=== PATIENT | male | born 1950 | race Caucasian/White ===

== ENCOUNTER → 2017-05-21 | Outpatient (CLI) | payer OTHER | LOC: PET 08:43 | DX: R91.8 Other nonspecific abnormal finding of lung field (principal); J98.11 Atelectasis; K80.80 Other cholelithiasis without obstruction ==

== ENCOUNTER 2019-01-20 05:44 | Inpatient (IN) | payer OTHER ==
[2019-01-12 10:45] LABS: ABSOLUTE NEUTROPHILS 5.9 thou/uL (1.4-8.2); BASOPHILS 1.4 % (0.0-2.0); EOSINOPHILS 0.9 % (0.0-3.0); HEMATOCRIT 41.9 % (42.0-52.0); HEMOGLOBIN 13.9 gm/dL (14.0-18.0); LYMPHOCYTES 20.3 % (24.0-44.0); MCH 32.4 pg (26.0-34.0); MCHC 33.1 g/dL (28.0-37.0); PLATELET COUNT 238 thou/uL (150-400); POLYS 71.4 % (36.0-66.0); RBC 4.28 mil/uL (4.50-6.00); RDW 14.8 % (10.5-14.5); URINE BILIRUBIN NEGATIVE (Negative); URINE BLOOD NEGATIVE (Negative); URINE CLARITY CLEAR; URINE COLOR YELLOW; URINE GLUCOSE-RANDOM* NEGATIVE (Negative); URINE KETONES NEGATIVE (Negative); URINE LEUKOCYTES-REFLEX NEGATIVE (Negative); URINE NITRITE-REFLEX NEGATIVE (Negative); URINE PROTEIN (DIPSTICK) TRACE (Negative); URINE UROBILINOGEN 0.2 E.U./dl (0.2-1.0); WBC 8.3 thou/uL (4.0-11.0)
[2019-01-12 10:59] LABS: APTT 26.8 Seconds (24.5-32.8); CALCIUM 9.6 mg/dL (8.5-10.1); POTASSIUM 4.1 mmol/L (3.5-5.1); PROTIME 10.4 Seconds (9.3-11.4); TOTAL BILIRUBIN 0.7 mg/dL (<0.1-1.0); TOTAL PROTEIN 7.1 g/dL (6.4-8.2)
--- NOTE | 2019-01-12 17:45 | EKG ---
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: Carlo RENDON : 1950 Requested By: Artem Bettencourt Order Number: [id number] MD: Juventino Miller Measurements Intervals [place] Rate: 65 P: 7 MI: 197 QRS: -10 QRSD: 147 T: -17 QT: 439 QTc: 457 Interpretive Statements Sinus rhythm Right bundle branch block Cannot rule out inferior infarct, age indeterminate Compared to ECG 08/02/1992 15:22:00 Right bundle-branch block now present Electronically Signed On 01-12-2019 17:44:43 CDT by Juventino Miller [email or web address] <ELECTRONICALLY SIGNED> By: Juventino Miller MD, [facility] 01/12/19 1744 56 Juventino Miller MD, FAC /EPI
[~2019-01-20] VITALS: Ht 182.9 cm; Wt 131.9 kg
[2019-01-20] VITALS (11 sets, daily range): BP systolic 108–138; BP diastolic 53–78
[~2019-01-20 05:44] MED LIST: AMLODIPINE-BEN1 EAC3 PO; CASODEX 50 MG T50 M1 PO; LUPRON DEPOT22.5 MG IM; NEURONTIN100 MG PO; OMEPRAZOLE 20 M20 M1 PO; PERFOROMIS20 MCG/2 M INH; PULMICORT0.25 MG/1 INH; ZYLOPRIM300 MG PO
[2019-01-20 15:28] LABS: ABSOLUTE NEUTROPHILS 12.1 thou/uL (1.4-8.2); BASOPHILS 0.1 % (0.0-2.0); EOSINOPHILS 0.1 % (0.0-3.0); HEMATOCRIT 40.5 % (42.0-52.0); HEMOGLOBIN 13.2 gm/dL (14.0-18.0); LYMPHOCYTES 2.4 % (24.0-44.0); MCH 32.1 pg (26.0-34.0); MCHC 32.7 g/dL (28.0-37.0); MCV 98.4 fL (80.0-100.0); PLATELET COUNT 220 thou/uL (150-400); POLYS 95.4 % (36.0-66.0); RBC 4.11 mil/uL (4.50-6.00); RDW 14.5 % (10.5-14.5); WBC 12.6 thou/uL (4.0-11.0)
[2019-01-20 15:34] LABS: CALCIUM 9.6 mg/dL (8.5-10.1); POTASSIUM 4.5 mmol/L (3.5-5.1)
--- NOTE | 2019-01-20 16:08 | NUR ---
01/20: 1500 PT ARRIVED FROM PACU WITH NURSE. EPIDURAL RUNNING, CHECKED SETTINGS WITH RN. PT C/O PAIN IN LEFT EYE, FEELS LIKE FOREIGN OBJECT. CONSULTS CALLED. DR HUFFMAN FLUSHED PT'S LEFT EYE WITH SALINE USING STERILE TECHNIQUE. BROTHER AND FRIEND AT BEDSIDE.
[2019-01-21] VITALS (11 sets, daily range): BP systolic 100–127; BP diastolic 54–70
[2019-01-21 05:40] LABS: HEMATOCRIT 36.9 % (42.0-52.0); MCH 32.3 pg (26.0-34.0); MCHC 32.6 g/dL (28.0-37.0); MCV 99.1 fL (80.0-100.0); RBC 3.72 mil/uL (4.50-6.00); RDW 14.8 % (10.5-14.5); WBC 10.6 thou/uL (4.0-11.0)
[2019-01-21 05:55] LABS: CALCIUM 8.6 mg/dL (8.5-10.1); CREATININE 0.8 mg/dL (0.7-1.3); POTASSIUM 4.6 mmol/L (3.5-5.1)
--- NOTE | 2019-01-21 07:00 | NUR ---
No event in this shift. Pt remains stable t/o the shift. Pain control had been adequated with epidural analgesic. He rated his pain 1-2 this am. No complication from epidural indicates. CTx2 remains inplace, function properly w/o any complication. VSS. Continue working toward goals.
[2019-01-22] VITALS (20 sets, daily range): BP systolic 111–133; BP diastolic 47–72
--- NOTE | 2019-01-22 17:39 | NUR ---
pt is A&OX3, pt is continuing pain management and o2 5L/MIN/NC , pt's pain can control by Fentanyl epidural infusion, pt has pain when pt change position and get up to chair, pt gets up to chair with assist, pt stays chair about 2hr, pt's L side chest tube is working well to water seal per Atrium drain device, 210ml light blood drainage now, pt denies SOB and pain now.
[2019-01-23] VITALS (17 sets, daily range): BP systolic 102–138; BP diastolic 53–79
--- NOTE | 2019-01-23 15:09 | NUR ---
INITIAL ASSESSMENT: Received consult for discharge planning. SW reviewed chart and spoke with attending physician. Pt was admitted from home due to lung mass. Pt is s/p left thoracotomy. Pt currently in ICU. SW met with pt at bedside. Introduced role of SW. Pt is alert/orientated x 4. Pt reports he lives alone in a mobile home in [place]. Pt reports that prior to admission, pt was independent with ADL. Pt does have a ramp into his mobile home. Pt's PCP is Dr. Ludwin Granados in [place]. No hx of services. SW discussed discharge plans. Pt requests referral to post-acute facility, as he lives at home. SW discussed options. Pt requests a referral to a SNF close to [place]. SW reviewed options. Pt requests referrals to be sent to [facility] and [facility]. life care planner to fax referral. Pt may transfer out of ICU. SW is following to assist as needed with discharge planning.
--- NOTE | 2019-01-23 15:34 | NUR ---
DISCHARGE PLANNING. ANTICIPATED DISCHARGE LATER THIS WEEK. POST ACUTE RECOMMENDED AT DISCHARGE. PATIENT REFERRAL FAXED TO [facility]. CALL PLACED TO AGBE, ADMISSIONS FOR [facility]. PER GABE SHE WILL HAVE 2 MALE BEDS AVAILABLE THIS WEEK. GABE TO REVIEW PATIENT REFERRAL AND NOTIFY CM ONCE REVIEW IS COMPLETE. [facility] [phone] FAX [phone]. [facility] CALL PLACED TO [facility] AND [facility], SPOKE WITH VALORIE IN ADMISSIONS. VALORIE NOTIFIED OF PATIENT REFERRAL AND ANTICIPATED DISCHARGE. VALORIE TO REIEW PATIENT REFERRAL AND NOTIFY CM ONCE REVIEW COMPLETE. FOLLOWING TO ASSIST WITH DISCHARGE NEEDS. [facility] [phone] FAX [phone].
[2019-01-24] VITALS (9 sets, daily range): BP systolic 93–144; BP diastolic 54–78
--- NOTE | 2019-01-24 06:31 | NUR ---
Pt is progressing to his care plan goals, he continues to have discomfort, some of which is chronic, but the current regimen is keeping him comfortable. He still has a poor appetite, no BM since 01/20/19, he is voiding after his zuñiga was dc'd 01/23/19. He has been out of bed with PT/OT, and up to the chair.
[2019-01-24 10:28] LABS: ABSOLUTE NEUTROPHILS 5.3 thou/uL (1.4-8.2); EOSINOPHILS 3.6 % (0.0-3.0); HEMATOCRIT 37.9 % (42.0-52.0); HEMOGLOBIN 12.4 gm/dL (14.0-18.0); LYMPHOCYTES 18.2 % (24.0-44.0); MCH 32.3 pg (26.0-34.0); MCHC 32.7 g/dL (28.0-37.0); MCV 98.9 fL (80.0-100.0); MONOCYTES 7.6 % (1.0-8.0); PLATELET COUNT 189 thou/uL (150-400); POLYS 69.6 % (36.0-66.0); RBC 3.83 mil/uL (4.50-6.00); RDW 14.9 % (10.5-14.5); WBC 7.6 thou/uL (4.0-11.0)
[2019-01-24 10:37] LABS: CALCIUM 9.6 mg/dL (8.5-10.1); CREATININE 0.9 mg/dL (0.7-1.3); MAGNESIUM 1.8 mg/dL (1.8-2.4); POTASSIUM 3.8 mmol/L (3.5-5.1)
--- NOTE | 2019-01-24 13:37 | 2DMMODE ---
[facility] [place] [address] 2 D/M-MODE ECHOCARDIOGRAM Name: ALISA DOUGLAS Room #: 238-P ADM IN M.R.#: [id number] Admission: 01/20/19 Attend Phys: Artem Bettencourt MD Discharge: Date of : 48 Report #: [id number] THIS REPORT FOR: //name// APPROVED REPORT Study performed: 01/24/2019 12:06:11 EXAM: Comprehensive 2D, Doppler, and color-flow Echocardiogram Patient Location: ICU Room #: 238 Status: routine BSA: 2.50 HR: 113 bpm BP: 123/67 mmHg Rhythm: Atrial Fibrillation Other Information Study Quality: Technically Difficult Indications COPD Atrial Fibrillation Hypertension/HDD Aortic Valve AoV Peak John.: 1.17 m/s AO Peak Gr.: 5.44 mmHg LVOT Max P.24 mmHg LVOT Max V: 1.14 m/s Pulmonary Valve PV Peak John.: 0.86 m/s PV Peak Gr.: 2.94 mmHg Left Ventricle The left ventricle is normal size. There is normal left ventricular wall thickness. The left ventricular systolic function is normal. The left ventricular ejection fraction is within the normal range. LVEF is 55-60%. This study is not technically sufficient to allow evaluation of the LV diastolic function due to atrial fibrillation. Right Ventricle The right ventricle is normal size. The right ventricular systolic function is normal. [facility] [address] [place] [address] 2 D/M-MODE ECHOCARDIOGRAM Name: ALISA DOUGLAS Room #: 238-P ADM IN M.R.#: [id number] Admission: 01/20/19 Attend Phys: Artem Bettencourt MD Discharge: Date of : 48 Report #: [id number] Left atrium is dilated. Right atrium is at the upper limits of normal. Aortic Valve The aortic valve is normal in structure. No aortic regurgitation is present. There is no aortic valvular stenosis. Mitral Valve The mitral valve is normal in structure. Mild mitral regurgitation. No evidence of mitral valve stenosis. Tricuspid Valve The tricuspid valve is normal in structure. There is no tricuspid valve regurgitation noted. Pulmonic Valve The pulmonary valve is normal in structure. There is no pulmonic valvular regurgitation. Great Vessels The aortic root is normal in size. IVC is not well visualized. Pericardium There is no pericardial effusion. <Conclusion> The left ventricle is normal size. LVEF is 55-60%. This study is not technically sufficient to allow evaluation of the LV diastolic function due to atrial fibrillation. The right ventricle is normal size. Left atrium is dilated. Right atrium is at the upper limits of normal. The aortic valve is normal in structure. Mild mitral regurgitation. There is no tricuspid valve regurgitation noted. The aortic root is normal in size. There is no pericardial effusion. <ELECTRONICALLY SIGNED> By: Adriel Luna MD, FACC 01/24/191336 133 36 Adriel Luna MD, FACC /INF
--- NOTE | 2019-01-24 16:04 | NUR ---
SW reviewed chart. Pt remains in ICU. SW notified that both [facility] and [facility] can accept pt. SW met with pt at bedside to provide update. Pt would prefer to go to [facility]. tool and production planner updated facilities. SW is following to assist as needed with discharge planning.
--- NOTE | 2019-01-24 16:14 | NUR ---
PATIENT WORKED WITH PT AND OT TODAY TO GET TO CHAIR. UPON ASSESSMENT THIS MORNING, PATIENT HEART RATE BECAME IRREGULAR WITH RATES OF 120'S-140'S BEATS PER MINUTE. CARDIOLOGY CONSULTED. ORDERS RECEIEVED. LATER IN THE DAY, HIS HEART RATE INCREASED IN RATE TO 140'S SUSTAINED. THIS WAS NOTED TO DR. MENDENHALL AND ORDERS RECEIVED. METOPROLOL GIVEN PER ORDER WITH HEART RATE AT THIS TIME IS LOW 100 BEATS PER MINUTE. PLAN OF CARE IS TO CONTINUE TO MONITOR HEART RATE, RHYTHM, TITRATE OXYGEN, AND INCREASE ACTIVITY.
--- NOTE | 2019-01-24 19:23 | EKG ---
[place] [address] [facility] [employer] [place] [address] ELECTROCARDIOGRAM REPORT Name: ALISA DOUGLAS Room #: 238-P ADM IN M.R.#: [id number] Admission: 01/20/19 Attend Phys: Artem Bettencourt MD Discharge: Date of : 48 Report #: [id number] THIS REPORT FOR: //name// [facility] Test Date: 2019-01-24 Test Time: 10:37:08 Pat Name: ALISA DOUGLAS Department: Room: 238 P Gender: M Deposit Clerk: Yumiko ELLIOTT : 1950 Requested By: Krystian Weaver Order Number: [id number] MD: Juventino Miller Measurements Intervals [place] Rate: 72 P: 24 FL: 175 QRS: -8 QRSD: 158 T: -3 QT: 412 QTc: 451 Interpretive Statements Sinus rhythm Paired ventricular premature complexes Right bundle branch block Compared to ECG 01/12/2019 10:57:04 Ventricular premature complex(es) now present Electronically Signed On 01-24-2019 19:23:41 FOUNTAIN ATTENDANT by Juventino Miller [email or web address] <ELECTRONICALLY SIGNED> By: Juventino Miller MD, [facility] 01/24/191922 1037 1037 Juventino Miller MD, FAC /EPI
[2019-01-25 01:06] LABS: GLYCOHEMOGLOBIN (HGB A1C) 5.9 % (4.8-5.6)
[2019-01-25 04:07] VITALS: BP 101/59
--- NOTE | 2019-01-25 04:12 | NUR ---
NO OVERNIGHT EVENTS. PT. SLEPT THROUGH MOST OF NIGHT. ASSESSMENTS AND VITAL SIGNS CHARTED. CONTINUE TO FOLLOW POC. PT. WILL TRANSFER TO CCU BEFORE END OF SHIFT. WILL CONTINUE TO MONITOR.
--- NOTE | 2019-01-25 06:22 | NUR ---
TRANSFERRED PT. TO CCU AT 0615. REPORT GIVEN TO TAHIR AMADOR. PT. TRANSFERRED WITH ALL BELONGINGS WITHOUT COMPLICATIONS.
--- NOTE | 2019-01-25 06:52 | NUR ---
ASSUMED PT CARE AROUND 0615. PT XFR FROM ICU. PT VSS WITH C/O PAIN ON INCISIONS FROM THE MOVE. PT GIVEN PAIN MEDICATION. PT ASSESSMENT CHARTED AND REPORT PASSED TO DAYSHIFT.
--- NOTE | 2019-01-25 11:07 | PATH ---
[facility] [place] [address] PATHOLOGY RPT PROCEDURE Name: ALISA DOUGLAS Room #: 218-P ADM IN M.R.#: [id number] Admission: 01/20/19 Date of : 48 Discharge: Report #: [id number] Path Case #: [id number] [facility] Accession Number: [id number] . 01 Material submitted: . PART A: lung - 9 PULMONARY LIGAMENT PART B: lymph node - HILAR LYMPH NODE #10A PART C: lymph node - HILAR LYMPH NODE #10B PART D: lung - LEFT LOWER LOBE. Modifiers: left, lower lobe PART E: lymph node - HILAR LYMPH NODE #10C PART F: lymph node - AP WINDOW LYMPH NODE . 01 Clinical history: . Left lower lobe lung mass. . 02 Diagnosis: A. Lymph node (1), 9 pulmonary ligament, biopsy: - Reactive lymph node with abundant pigmented macrophages. - Negative for malignancy (0/1). . B. Lymph nodes (3), hilar lymph node #10A, biopsy: - Reactive lymph nodes with pigmented macrophages. - Negative for malignancy (0/3). . C. Lymph node (1), hilar lymph node #10B, biopsy: - Reactive lymph node with pigmented macrophages. - Negative for malignancy (0/1). . D. Lung, left lower lobe, lobectomy: - INVASIVE MODERATELY DIFFERENTIATED ADENOCARCINOMA WITH LEPIDIC (50%), ACINAR (30%), PAPILLARY (10%) AND CLEAR CELL (10%) VARIANTS. - TUMOR MEASURES 2.4 CM IN GREATEST DIMENSION. - MARGINS OF RESECTION FREE; CLOSEST PLEURAL MARGIN IS 0.05 CM AWAY. - BRONCHIAL MARGIN 3.0 CM AWAY FROM MASS AND NEGATIVE FOR MALIGNANCY. - VASCULAR MARGIN 3.7 CM AWAY FROM MASS AND NEGATIVE FOR MALIGNANCY. - FOUR HILAR LYMPH NODES SHOWING REACTIVE CHANGES WITH PIGMENTED MACROPHAGES; NEGATIVE FOR MALIGNANCY (0/4). . E. Lymph node (1), hilar lymph node #10C, biopsy: - Reactive lymph node with pigmented macrophages. - Negative for malignancy (0/1). . F. Lymph node (1), AP window lymph node, biopsy: - Reactive lymph node with pigmented macrophages. - Negative for malignancy (0/1). . . Surgical Pathology Cancer Case Summary [address] [address] PATHOLOGY RPT PROCEDURE Name: ALISA DOUGLAS Room #: 218-P ADM IN M.R.#: [id number] Admission: 01/20/19 Date of : 48 Discharge: Report #: [id number] Path Case #: [id number] . Protocol posting date: August 2016 . LUNG: Procedure- Lobectomy Specimen Laterality- Left Tumor Site- Lower lobe of lung Tumor Size- 2.4 cm in greatest dimensions Tumor Focality- Single tumor Histologic Type- Invasive adenocarcinoma, lepidic (50 %), acinar (30%), papillary (10%) and clear cell (10%) components Histologic Grade- G2: Moderately differentiated Spread Through Air Spaces- Not identified Visceral Pleura Invasion- Not identified Lymphovascular Invasion- Not identified Direct Invasion of Adjacent Structures- Visceral pleura invasion present Margins- All margins are uninvolved by tumor Margins examined: Bronchial, Vascular and Visceral Pleura Distance of invasive carcinoma from closest margin (centimeters): 0.05 cm Specify closest margin: Visceral pleura Treatment Effect- No known presurgical therapy Regional Lymph Nodes- Number of Lymph Nodes Examined: 11 Specify royer station(s) examined: Hilar nodes, Pulmonary ligament and AP window . Pathologic Stage Classification (pTNM, AJCC 8th Edition) . TNM Descriptors- None Primary Tumor (pT) pT2a: Tumor >3 cm, but =4 cm in greatest dimension Invades visceral pleura (PL2) Regional Lymph Nodes (pN) pN0: No regional lymph node metastasis . Distant Metastasis (pM): pMx (unknown) LBQ 01/25/2019 1035 Local . 02 Comment: A properly controlled VVG elastin special stain is performed on block D5 and it shows focal visceral pleural invasion present. . A properly controlled iron special stain is performed on block D7 and it is reactive within numerous giant cells as well as macrophages. Focally possible zoe-like inclusions are identified within these macrophages as well. A note is received from [employer] that states a request for the pathologist to look for any signs of asbestosis. Per the literature, the most recent article regarding "Pathology of Asbestosis - An Update of Diagnostic Criteria" published in the Arch Pathol Lab Med-Vol [address] [address] PATHOLOGY RPT PROCEDURE Name: ALISA DOUGLAS Room #: 218-P ADM IN M.R.#: [id number] Admission: 01/20/19 Date of : 48 Discharge: Report #: [id number] Path Case #: [id number] 134, May 2009, article by Dr. Antony Rico M.D. the best way to assess for the asbestos exposure is quantification or analysis under scanning electron microscopy. For this reason, blocks D5 and D7 will be forwarded to [facility] [place], [place]. An addendum will be issued subsequent to receiving the same. . Dr. Kaylyn Parsons and Dr. Mable Hernandez have seen digital media representative slides of this case and concur with the diagnosis rendered. . Findings of this case are discussed with Dr. Artem Bettencourt in the afternoon of 01/23/19. (IUV/db; 01/24/2019) . 02 Electronically signed: . Lisa Guerrero MD, Pathologist NPI- [id number] . 01 Gross description: . A. Received in formalin labeled "Alisa Douglas, pulmonary ligament" is a padilla-castaneda soft tissue nodule measuring 0.6 x 0.6 x 0.4 cm. The specimen is bisected and is possibly consistent with a lymph node. The specimen is submitted entirely in cassette A1. . B. Received in formalin labeled "Alisa Douglas, hilar lymph node #10A" are three fragments of castaneda-black soft tissue or possible lymphoid tissue measuring in aggregate 1.7 x 1.5 x 0.4 cm. The specimen is submitted without sectioning in cassette B1. . C. Received in formalin labeled "Alisa Douglas, hilar lymph node #10B" is a castaneda-black possible lymph node measuring 0.8 x 0.6 x 0.4 cm. The specimen is bisected and submitted in cassette C1. . D. Received in formalin labeled "Alisa Douglas, left lower lobe" is a lung lobectomy specimen weighing 231 g and measuring 17.0 x 11.0 x 5.3 cm. A staple line is identified at the hilum. The pleura is purple-red and hemorrhagic with a puckered area measuring 1.0 x 0.3 cm. Four possible lymph nodes are identified at the hilum, ranging from 0.4-1.4 cm in greatest dimension. The specimen is serially sectioned to reveal a padilla-white hemorrhagic tumor in the superior aspect of the specimen measuring 2.4 x 2.3 x 1.7 cm. The tumor is located 3.0 cm from the bronchial margin and 3.7 cm from the vascular margin. The tumor corresponds with the previously described puckered area on the pleural surface, and grossly involves the pleura. The lung tissue surrounding the tumor is hemorrhagic. The remaining lung parenchyma is red-brown and focally hemorrhagic without additional nodules identified. Nuclear Security Officer sections are submitted as follows: D1-D2 bronchial and vascular margins D3 four whole possible lymph nodes [address] [address] PATHOLOGY RPT PROCEDURE Name: ALISA DOUGLAS Room #: 218-P ADM IN M.R.#: [id number] Admission: 01/20/19 Date of : 48 Discharge: Report #: [id number] Path Case #: [id number] D4-D6 tumor to pleural surface (inked black) D7-D10 remainder of tumor submitted entirely . E. Received in formalin labeled "Alisa Douglas, hilar lymph node #10C" is an irregular portion of castaneda-black soft tissue or possible lymphoid tissue measuring 2.7 x 1.7 x 1.4 cm. The specimen is serially sectioned and submitted entirely in cassette E1-E2. . F. Received in formalin labeled "Alisa Douglas, AP window lymph node is a 1.4 x 0.9 x 0.5 cm hines-black possible lymph node. The specimen is bisected and submitted in cassette F1. ([facility]; 01/22/2019) [facility] 01/22/2019 0926 Local . 02 Pathologist provided ICD-10: C34.32, R59.9 . 02 CPT . 177154, 020587, 347687, 168535, 156807 Specimen Comment: A courtesy copy of this report has been sent to [phone], [phone] Specimen Comment: [phone] Specimen Comment: Report sent to / DR PADRON Performed at: [address], [place], [place] [id number] MD Lambert Cornejo MD Phone: [phone] Performed at: [address] [id number] MD Lisa Guerrero MD Phone: [phone]
[2019-01-25 11:11] VITALS: BP 125/66
--- NOTE | 2019-01-25 15:09 | O ---
[facility] [place] [address] OPERATIVE REPORT Name: ALISA DOUGLAS Room #: 218-P ADM IN M.R.#: [id number] Admission: 01/20/19 Attend Phys: Artem Bettencourt MD Discharge: Date of : 48 Report #: [id number] THIS REPORT FOR: //name// CC: Artem Bettencourt Physician staff JAY PADRON DATE OF SERVICE: 01/20/2019 PREOPERATIVE DIAGNOSIS: Adenocarcinoma, left lower lobe of lung. POSTOPERATIVE DIAGNOSIS: Adenocarcinoma, left lower lobe of lung. OPERATION: Bronchoscopy, mediastinoscopy, left thoracotomy with lower pulmonary lobectomy. Lymph node dissection. SURGEON: Artem Bettencourt MD OPS MANAGER: CONCETTA Wynn. ANESTHESIA: General. INDICATIONS: The patient is a 68-year-old seen for the Pulmonary [facility]. The patient has a diagnosed adenocarcinoma by needle biopsy and a left lower lobe lesion that has been seen to grow over the last year or so. PET scan shows activity in this lesion, but does not show activity in other areas. FINDINGS AND TECHNIQUE: After general anesthesia was established, flexible diagnostic bronchoscopy was performed. No endobronchial lesions were noted. The patient was positioned, prepped and draped for mediastinoscopy. A low collar incision was made, pretracheal space was entered and the mediastinoscope was passed. I did not find any enlarged lymph nodes on the left side and scope was down to and in the midst of the great vessels. As such hemostasis was assured and this portion of the procedure was ended. Wound was closed in layers. Double lumen endotracheal tube was placed and its position ascertained under bronchoscopic guidance. The patient was positioned with the left side up. Exposure was obtained through a rib sparing, nerve sparing thoracotomy via the fifth intercostal space. The lesion in the lower lobe was identified. The pulmonary reflection was divided including the inferior pulmonary ligament and the inferior pulmonary veins were circumdissected. The fissure was developed and arteries to the pulmonary arterial branches to the lower lobe were ligated and divided. The fissure was completed anteriorly where it was incomplete and somewhat difficult [facility] [address] [place] [address] OPERATIVE REPORT Name: CARYNLENIALISA LANIE Room #: 218-P ADM IN M.R.#: [id number] Admission: 01/20/19 Attend Phys: Artem Bettencourt MD Discharge: Date of : 48 Report #: [id number] to distinguish lingula from the lower lobe. When all the arterial branches were ligated then the inferior pulmonary vein was stapled and divided. Then, the bronchus was circumdissected, stapled, and divided. Lymph nodes in the hilum and then in the aortopulmonary window were dissected and submitted for permanent pathology. Bronchial stump was tested. Hemostasis was ascertained. Chest was irrigated and 2 chest tubes were brought out through separate stab wounds. The chest was closed in layers to maintain the nerve sparing, rib sparing approach. The patient was taken to the recovery area in good condition having tolerated the procedure well. All counts were reported as correct. It should be mentioned that an epidural catheter had been placed by anesthesia prior to surgery. <ELECTRONICALLY SIGNED> By: Artem Bettencourt MD 01/25/19 1509 1248 1259 Artem Bettencourt MD /nt
--- NOTE | 2019-01-25 15:23 | NUR ---
All parties updated on dc planning efforts. Anticipating dc to SNF at [facility] tomorrow. W/c van transport with [employer] vouchered per [facility] for a [phone] pickup. The SNF was not able to provide transport. Terra in admissions updated and will need dc summary and instructions faxed in the am. Pt is aware and agreeable. Will follow.
[2019-01-25 16:23] VITALS: BP 121/57
--- NOTE | 2019-01-25 18:14 | NUR ---
ASSESSMENTS AND INTERVENTIONS DOCCUMENTED. PATIENT CONCERNED ABOUT A FIBB BUT VIVIANA HYLTON WAS ABLE TO EDUCATE PATIENT ON THE PLAN OF CARE. NO COMPLAINTS OF PAIN THIS SHIFT. THE PLAN OF CARE IS TO TRANSFER TO REHAB TOMORROW 01/26.
[2019-01-25 19:58] VITALS: BP 111/52
[2019-01-26 04:53] VITALS: BP 126/58
[2019-01-26 05:10] LABS: ABSOLUTE NEUTROPHILS 4.4 thou/uL (1.4-8.2); BASOPHILS 1.1 % (0.0-2.0); EOSINOPHILS 3.8 % (0.0-3.0); HEMATOCRIT 35.5 % (42.0-52.0); HEMOGLOBIN 11.7 gm/dL (14.0-18.0); LYMPHOCYTES 22.7 % (24.0-44.0); MCH 32.4 pg (26.0-34.0); MCHC 33.1 g/dL (28.0-37.0); MCV 97.9 fL (80.0-100.0); MONOCYTES 9.1 % (1.0-8.0); PLATELET COUNT 205 thou/uL (150-400); POLYS 63.3 % (36.0-66.0); RBC 3.63 mil/uL (4.50-6.00); RDW 14.6 % (10.5-14.5); WBC 6.9 thou/uL (4.0-11.0)
--- NOTE | 2019-01-26 05:48 | NUR ---
ASSUMED PT CARE AT 1900. PT VSS AND PT RESTING IN CHAIR WITH ZERO C/O PAIN OR SOB. PT UP TO BED WITH NIGHT MEDICATION PASS. PT SLEPT THRU NIGHT WITH MINIMAL INTERRUPTIONS. PT IS IN PLACE TO BE DISCHARGED TOMORROW TO SNF PER ORDERS AND NOTES. WILL CONTINUE TO MONITOR PT PER POC.
[2019-01-26 08:00] VITALS: BP 122/64
[2019-01-26 09:08] VITALS: BP 122/64
[2019-01-26] MEDS ORDERED: PACERONE 200 M200 M1 PO (10:17)
[2019-01-26] MEDS ORDERED: METOPROLOL SUCC25 M1 PO (10:17)
[2019-01-26] MEDS ORDERED: ALBUTEROL2.5 MG/0.5 INH (10:17)
[2019-01-26] MEDS ORDERED: NORVASC5 MG PO (10:19)
[2019-01-26] MEDS ORDERED: MUCINEX600 MG PO (10:20)
--- NOTE | 2019-01-26 11:01 | NUR ---
ASSUMED CARE AT 0700, SHIFT ASSESSMENT DONE, MEDS GIVEN, VSS. DENIES ANY PAIN, NAUSEA, VOMIITNG. ON 2LNC, IS SCHEDULED TO DC TODAY BETWEEN [phone]. PERIPHERAL IV WAS TAKEN OUT. WILL CONTINUE TO ASSESS AND ASSIST WITH ADLs NEEDED.
--- NOTE | 2019-01-26 12:42 | NUR ---
FAXED DC ORDERS/SUMMARY TO [facility] RECEIVED CONFIRMATION AND LEFT MSG WITH WALLY IN ADM THAT DC ORDERS FAXED.
--- NOTE | 2019-01-26 13:42 | NUR ---
discharge order received, periphearla iv was taken out. [facility]. pt left with [employer] at 1315.
--- NOTE | 2019-01-26 16:56 | EKG ---
[address] [address] ELECTROCARDIOGRAM REPORT Name: ALISA DOUGLAS Room #: 218-P [facility] M.R.#: [id number] Admission: 01/20/19 Attend Phys: Artem Bettencourt MD Discharge: 01/26/19 Date of : 48 Report #: [id number] THIS REPORT FOR: //name// [facility] Test Date: 2019-01-25 Test Time: 09:15:29 Pat Name: ALISA DOUGLAS Department: Room: 218 Gender: M Electrical Logger: Elsi LORA : 1950 Requested By: Cara Garcia Order Number: [id number] MD: Juventino Miller Measurements Intervals [place] Rate: 67 P: 20 AK: 187 QRS: -11 QRSD: 162 T: -14 QT: 469 QTc: 495 Interpretive Statements Sinus rhythm Probable left atrial enlargement Right bundle branch block Compared to ECG 01/24/2019 10:37:08 Ventricular premature complex(es) no longer present Electronically Signed On 01-26-2019 16:56:43 [employer]IOR [employer] E[employer] DEVELOPER by Juventino Miller [email or web address] <ELECTRONICALLY SIGNED> By: Juventino Miller MD, [facility] 01/26/19 1656 4 Juventino Miller MD, [facility] /EPI
== END 2019-01-26 13:41 | DRG 163 ==
LOC: 2N 05:44 → TBA 05:44 → ICU 05:44 → PRE 08:16 → ICU 15:13 → 2N 01-25 06:45
PROVIDERS: Hospitalist; Pediatrics; Physician Assistant; ADMIT Surgery Vascular Surgery
PROC: 0BTJ4ZZ Resection of Left Lower Lung Lobe, Percutaneous Endoscopic Approach (ICD-10-PCS; principal; 2019-01-20)
DX: C34.32 Malignant neoplasm of lower lobe, left bronchus or lung (principal); J96.01 Acute respiratory failure with hypoxia; E87.3 Alkalosis; J44.9 Chronic obstructive pulmonary disease, unspecified; I10 Essential (primary) hypertension; K21.9 Gastro-esophageal reflux disease without esophagitis; M10.9 Gout, unspecified; G62.9 Polyneuropathy, unspecified; E66.9 Obesity, unspecified; M19.90 Unspecified osteoarthritis, unspecified site; Z96.643 Presence of artificial hip joint, bilateral; I48.0 Paroxysmal atrial fibrillation; R73.9 Hyperglycemia, unspecified; Z88.0 Allergy status to penicillin; Z87.891 Personal history of nicotine dependence; Z68.39 Body mass index [BMI] 39.0-39.9, adult; Z85.46 Personal history of malignant neoplasm of prostate; Z83.3 Family history of diabetes mellitus; Z79.899 Other long term (current) drug therapy
CPT/HCPCS: 10078; 10081; 10203; 47405; 50010; 50101; 50386; 50403; 50417; 50455; 50497; 50607; 50649; 50739; 50740; 51301; 52191; 52301; 52303; 54118; 56524; 56525; 56526; 56527; 56528; 62110; 62900; 65020; 65040; 65105; 70005

== ENCOUNTER → 2019-07-18 | Outpatient (CLI) | payer OTHER ==
[~2019-07-18] MED LIST changes: +ALBUTEROL2.5 MG/0.5 INH; +METOPROLOL SUCC25 M1 PO; +MUCINEX600 MG PO; +NORVASC5 MG PO; +PACERONE 200 M200 M1 PO
== END ==
LOC: SJCVC 14:41
DX: I48.0 Paroxysmal atrial fibrillation (principal); C80.1 Malignant (primary) neoplasm, unspecified; I10 Essential (primary) hypertension; J44.9 Chronic obstructive pulmonary disease, unspecified; M10.9 Gout, unspecified; M19.90 Unspecified osteoarthritis, unspecified site; Z87.891 Personal history of nicotine dependence; Z79.899 Other long term (current) drug therapy

== ENCOUNTER → 2020-01-18 | Outpatient (CLI) | payer OTHER | LOC: SJCVCIMAG 07:31 | PROVIDERS: ATTEND Internal Medicine Cardiovascular Disease | DX: I08.1 Rheumatic disorders of both mitral and tricuspid valves (principal); R94.31 Abnormal electrocardiogram [ECG] [EKG]; I45.10 Unspecified right bundle-branch block; I48.91 Unspecified atrial fibrillation; J44.9 Chronic obstructive pulmonary disease, unspecified; Z79.899 Other long term (current) drug therapy; Z87.891 Personal history of nicotine dependence ==

== ENCOUNTER → 2020-03-18 | Outpatient (CLI) | payer OTHER ==
[2020-03-18 15:22] LABS: CLARITY CLOUDY; COLOR RED; SOURCE LEFT CHEST; TOTAL VOLUME 55 mL
[2020-03-18 15:51] LABS: BF NUCLEATED CELLS 1255 /mm3; BF RBC 65355 /mm3
[2020-03-18 17:34] LABS: BF MACROPHAGE 6 %; BF NEUTROPHILS 2 %
[2020-03-19 11:24] LABS: SOURCE CHEST
[2020-03-19 14:08] LABS: BODY FLUID ALBUMIN 2.3 g/dL (Not Estab.); BODY FLUID AMYLASE 34 U/L (()); BODY FLUID GLUCOSE 81 mg/dL (()); BODY FLUID LDH 274 IU/L (()); BODY FLUID PROTEIN 3.7 g/dL (())
--- NOTE | 2020-03-21 15:07 | PATH ---
[facility] [address] [place] [address] PATHOLOGY RPT PROCEDURE Name: ALISA DOUGLAS Room #: REG RAFAEL Miranda.#: [id number] Admission: 03/18/20 Date of : 48 Discharge: Report #: [id number] Path Case #: [id number] Note [facility] Accession Number: [id number] TESTS RESULT FLAG UNITS REF RANGE LAB Clinician Provided Cytology Information No. of containers..01 Other (Miscellaneous) Source: LF PLEURAL FLUID DIAGNOSIS: LF PLEURAL FLUID NEGATIVE FOR MALIGNANT EPITHELIAL CELLS. REACTIVE MESOTHELIAL CELLS ARE PRESENT. THIS INTERPRETATION INCLUDES EVALUATION OF A CELL BLOCK. CHRONIC INFLAMMATION. Pathologist ICD10: 02 J90 Signed out by: 02 Lisa Guerrero MD, Pathologist NPI- [id number] Performed by: Frieda Tsang, Fireworks Assembly Supervisor ([facility]) Gross description: 01 20ML, RED, 1 TP 1 CB /LCS 03/20/2020 1657 Local FLAG LEGEND: L-Low Normal,H-High Normal,LL-Alert Low,HH-Alert High <-Panic Low,>-Panic High,A-Abnormal,AA-Critical Abnormal Performed at: [address] [place] [address] Mando Snyder MD, [address] [address] Lisa Guerrero MD, Performed at: [address], [place], [place] [id number] MD Mando Snyder MD Phone: [phone]
== END | disposition home or self-care (01) ==
LOC: ULTRA 11:55
PROVIDERS: ATTEND Internal Medicine Hematology & Oncology
DX: J90 Pleural effusion, not elsewhere classified (principal); J44.9 Chronic obstructive pulmonary disease, unspecified; Z85.118 Personal history of other malignant neoplasm of bronchus and lung; Z98.890 Other specified postprocedural states; Z79.899 Other long term (current) drug therapy

== ENCOUNTER → 2021-01-14 | Outpatient (CLI) | payer OTHER | LOC: SJCVC 11:12 | PROVIDERS: ATTEND Internal Medicine Cardiovascular Disease | DX: R94.31 Abnormal electrocardiogram [ECG] [EKG] (principal); I45.10 Unspecified right bundle-branch block; R00.1 Bradycardia, unspecified; I48.91 Unspecified atrial fibrillation; Z88.0 Allergy status to penicillin; Z79.899 Other long term (current) drug therapy; Z87.891 Personal history of nicotine dependence ==